=== PATIENT | female | born 1935 | race American Indian/Alaskan Native ===

== ENCOUNTER 2017-02-08 05:42 | Emergency (ER) | payer MEDICARE ==
[2017-02-08 05:57] VITALS: BMI 26.5
[2017-02-08 06:01] VITALS: TEMP 99
--- NOTE | 2017-02-08 06:26 | ED PDOC ---
Arrival/HPI - General Chief Complaint: Medical Clearance Time Seen by Provider: 02/08/17 06:02 Historian: Patient - History of Present Illness Narrative History of Present Illness (Text): 02/08/17 06:22 Mamta Sorto is a 81 year old female, with a history of hypercholesterolemia, hypertension, and PE, presents to the emergency department complaining of right sided neck muscle discomfort for past 2 days.No hx. of any trauma. Reports that symptoms are worsened with movement. Denies taking any medication for the pain. Denies fever, chills, headache, dizziness, abdominal pain, nausea, vomiting, diarrhea, urinary symptoms or any other complaints at this time. Time/Duration: < week (2 days ) Symptom Onset: Gradual Symptom Course: Worsening Severity Level: Mild Activities at Onset: Light Past Medical History - Provider Review Nursing Documentation Reviewed: Yes - Infectious Disease Hx of Infectious Diseases: None - Tetanus Immunization Tetanus Immunization: Unknown - Past Medical History Past Medical History: No Previous - Cardiac Hx Hypertension: Yes Hx Pacemaker: No Other/Comment: palpitations - Pulmonary Hx Pulmonary Embolism: Yes - Neurological Hx Paralysis: No Other/Comment: meningioma of the brain - HEENT Hx HEENT Disorder: No - Renal Hx Renal Disorder: No - Endocrine/Metabolic Hx Endocrine Disorders: No - Hematological/Oncological Hx Blood Transfusions: Yes (YRS AGO AFTER DELIVERY) - Musculoskeletal/Rheumatological Hx Musculoskeletal Disorders: Yes Hx Arthritis: Yes Other/Comment: ostopenia - Gastrointestinal Hx Gastrointestinal Disorders: Yes (liver meningioma) - Genitourinary/Gynecological Other/Comment: mammography 05/02/12 - Psychiatric Hx Emotional Abuse: No Hx Physical Abuse: No Hx Substance Use: No - Past Surgical History Past Surgical History: No Previous - Anesthesia Hx Anesthesia: Yes Hx Anesthesia Reactions: No Hx Malignant Hyperthermia: No - Suicidal Assessment Feels Threatened In Home Enviroment: No Family/Social History - Physician Review Nursing Documentation Reviewed: Yes Family/Social History: No Known Family HX Smoking Status: Never Smoked Hx Alcohol Use: No Hx Substance Use: No Hx Substance Use Treatment: No Allergies/Home Meds Allergies/Adverse Reactions: Allergies No Known Allergies Allergy (Verified 08/15/16 04:46) Home Medications: Home Meds Medication Instructions Recorded Confirmed Atorvastatin [Lipitor] 10 mg PO DIN 09/30/14 08/15/16 Valsartan [Diovan] 80 mg PO DAILY 09/30/14 08/15/16 Apixaban [Eliquis] 2.5 mg PO BID 07/24/15 08/15/16 Ergocalciferol [Vitamin D] 50,000 iu PO SUN 08/06/15 08/15/16 Ranitidine HCl [Acid Bail Bondsman] 150 mg PO BID 08/15/16 08/15/16 Review of Systems - Physician Review All systems were reviewed & negative as marked: Yes - Review of Systems Constitutional: Normal. absent: Fatigue, Fevers Respiratory: Normal. absent: SOB, Cough Cardiovascular: Normal. absent: Chest Pain Gastrointestinal: Normal. absent: Abdominal Pain, Diarrhea, Nausea, Vomiting Musculoskeletal: Neck Pain (right sided neck muscle tenderness) Skin: Normal. absent: Rash Neurological: Normal. absent: Headache, Dizziness Psychiatric: Normal Physical Exam Vital Signs Reviewed: Yes Vital Signs Temp Pulse Resp BP Pulse Ox 02/08/17 07:21 82 16 128/70 99 02/08/17 06:00 99 F 80 18 158/74 H 98 Temperature: Afebrile Blood Pressure: Normal Pulse: Regular Respiratory Rate: Normal Appearance: Positive for: Well-Appearing, Non-Toxic, Comfortable Pain Distress: None Mental Status: Positive for: Alert and Oriented X 3 - Systems Exam Head: Present: Atraumatic, Normocephalic Pupils: Present: PERRL Extroacular Muscles: Present: EOMI Conjunctiva: Present: Normal Ears: Present: NORMAL TM Pharnyx: Present: Normal Neck: Present: Other (right sided sternocleidomastoid tenderness). No: MIDLINE TENDERNESS, Paraspinal Tenderness Respiratory/Chest: Present: Clear to Auscultation, Good Air Exchange. No: Respiratory Distress, Accessory Muscle Use Cardiovascular: Present: Regular Rate and Rhythm, Normal S1, S2. No: Murmurs Abdomen: Present: Normal Bowel Sounds. No: Tenderness, Distention, Peritoneal Signs Upper Extremity: Present: Normal Inspection. No: Cyanosis, Edema Lower Extremity: Present: Normal Inspection. No: Edema Neurological: Present: GCS=15, CN II-XII Intact, Speech Normal Skin: Present: Warm, Dry, Normal Color. No: Rashes Psychiatric: Present: Alert, Oriented x 3, Normal Insight, Normal Concentration Medical Decision Making ED Course and Treatment: 02/08/17 06:26 Impression: A 81 year old female who presents to the emergency department complaining of right sided neck muscle discomfort. Plan: -- Reassess and disposition Progress Notes: - Medication Orders Current Medication Orders: Discontinued Medications Tramadol HCl (Ultram) 50 mg PO STAT STA Stop: 02/08/17 06:32 Last Admin: 02/08/17 06:49 Dose: 50 MG - Scribe Statement The provider has reviewed the documentation as recorded by the Quirino Rodriguez Provider Attestation: All medical record entries made by the Quirino were at my direction and personally dictated by me. I have reviewed the chart and agree that the record accurately reflects my personal performance of the history, physical exam, medical decision making, and the department course for this patient. I have also personally directed, reviewed, and agree with the discharge instructions and disposition. Disposition/Present on Arrival - Present on Arrival Any Indicators Present on Arrival: No History of DVT/PE: Yes History of Uncontrolled Diabetes: No Urinary Catheter: No History of Decub. Ulcer: No History Surgical Site Infection Following: None - Disposition Have Diagnosis and Disposition been Completed?: Yes Diagnosis: Neck muscle strain Disposition: HOME/ ROUTINE Disposition Time: 06:36 Patient Plan: Discharge Condition: GOOD Discharge Instructions (ExitCare): Muscle Strain (ED), Cervical Strain (DC) Additional Instructions: Apply warm compresses to the affected area/Take meds as prescribed/follow up with your doctor this week Prescriptions: Tramadol HCl [Ultram] 50 mg PO Q6 PRN #16 tab PRN Reason: Pain, Moderate (4-7)
[2017-02-08 07:23] VITALS: BP 128/70; PULSE 82; RESP 16; O2SAT 99
== END 2017-02-08 07:21 | disposition home or self-care (01) ==
LOC: ED 05:42
DX: S16.1XXA Strain of muscle, fascia and tendon at neck level, initial encounter (principal); X58.XXXA Exposure to other specified factors, initial encounter; Y92.9 Unspecified place or not applicable

== ENCOUNTER 2017-07-26 15:08 | Observation (INO) | payer MEDICARE, OTHER ==
[2017-07-26 15:24] VITALS: BMI 24.4
--- NOTE | 2017-07-26 15:49 | ED PDOC ---
Arrival/HPI - General Chief Complaint: Chest Pain Time Seen by Provider: 07/26/17 15:26 Historian: Patient, Family (Daughter) - History of Present Illness Time/Duration: Other (3 days) Symptom Onset: Gradual Symptom Course: Unchanged Quality: Aching Severity Level: Mild Activities at Onset: Rest Associated Symptoms (Text): 07/26/17 15:47 Patient complains of a three-day history of intermittent left-sided chest pain along with nausea. She is currently pain-free. She reports she just does not feel right. No dyspnea. No abdominal pain vomiting or diarrhea. No diaphoresis. No dizziness or lightheadedness. No injury or trauma. No fever. Past Medical History - Infectious Disease Hx of Infectious Diseases: None - Tetanus Immunization Tetanus Immunization: Unknown - Past Medical History Past Medical History: No Previous - Cardiac Hx Hypertension: Yes Hx Pacemaker: No Other/Comment: palpitations - Pulmonary Hx Pulmonary Embolism: Yes - Neurological Hx Paralysis: No Other/Comment: meningioma of the brain - HEENT Hx HEENT Disorder: No - Renal Hx Renal Disorder: No - Endocrine/Metabolic Hx Endocrine Disorders: No - Hematological/Oncological Hx Blood Transfusions: Yes (YRS AGO AFTER DELIVERY) - Musculoskeletal/Rheumatological Hx Musculoskeletal Disorders: Yes Hx Arthritis: Yes Other/Comment: ostopenia - Gastrointestinal Hx Gastrointestinal Disorders: Yes (liver meningioma) - Genitourinary/Gynecological Other/Comment: mammography 05/02/12 - Psychiatric Hx Emotional Abuse: No Hx Physical Abuse: No Hx Substance Use: No - Past Surgical History Past Surgical History: No Previous - Anesthesia Hx Anesthesia: Yes Hx Anesthesia Reactions: No Hx Malignant Hyperthermia: No - Suicidal Assessment Feels Threatened In Home Enviroment: No Family/Social History - Physician Review Nursing Documentation Reviewed: Yes Family/Social History: Unknown Family HX Smoking Status: Never Smoked Hx Alcohol Use: No Hx Substance Use: No Hx Substance Use Treatment: No Allergies/Home Meds Allergies/Adverse Reactions: Allergies No Known Allergies Allergy (Verified 08/15/16 04:46) Home Medications: Home Meds Medication Instructions Recorded Confirmed Atorvastatin [Lipitor] 10 mg PO DIN 09/30/14 08/15/16 Valsartan [Diovan] 80 mg PO DAILY 09/30/14 08/15/16 Apixaban [Eliquis] 2.5 mg PO BID 07/24/15 08/15/16 Ergocalciferol [Vitamin D] 50,000 iu PO SUN 08/06/15 08/15/16 Ranitidine HCl [Acid Horseback Riding Instructor] 150 mg PO BID 08/15/16 08/15/16 Review of Systems - Physician Review All systems were reviewed & negative as marked: Yes - Review of Systems Constitutional: Fatigue. absent: Fevers Respiratory: absent: SOB, Wheezing Cardiovascular: Chest Pain. absent: Palpitations, Orthopnea, Syncope Gastrointestinal: Nausea. absent: Abdominal Pain, Constipation, Diarrhea, Vomiting Genitourinary Female: absent: Dysuria, Frequency Neurological: absent: Headache, Dizziness, Focal Weakness Physical Exam Vital Signs Temp Pulse Resp BP Pulse Ox 07/26/17 15:45 98.0 F 84 18 125/71 98 07/26/17 15:15 99.4 F 85 18 137/77 100 Temperature: Afebrile Blood Pressure: Normal Pulse: Regular Respiratory Rate: Normal Appearance: Positive for: Well-Appearing, Non-Toxic, Comfortable Pain Distress: None Mental Status: Positive for: Alert and Oriented X 3 - Systems Exam Head: Present: Atraumatic, Normocephalic Pupils: Present: PERRL Extroacular Muscles: Present: EOMI Conjunctiva: Present: Normal Mouth: Present: Moist Mucous Membranes Pharnyx: No: ERYTHEMA, EXUDATE, TONSILS ENLARGED Neck: Present: Normal Range of Motion Respiratory/Chest: Present: Clear to Auscultation, Good Air Exchange, Decreased Breath Sounds. No: Respiratory Distress, Accessory Muscle Use, Tender to Palpation Cardiovascular: Present: Regular Rate and Rhythm, Normal S1, S2. No: Murmurs Abdomen: Present: Normal Bowel Sounds. No: Tenderness, Distention, Peritoneal Signs, Rebound, Guarding Upper Extremity: Present: Normal Inspection. No: Cyanosis, Edema Lower Extremity: Present: Normal Inspection. No: Edema Neurological: Present: GCS=15, CN II-XII Intact, Speech Normal, Motor Func Grossly Intact Skin: Present: Warm, Dry, Normal Color. No: Rashes Psychiatric: Present: Alert, Oriented x 3, Normal Insight, Normal Concentration Medical Decision Making ED Course and Treatment: 07/26/17 17:50 EKG shows normal sinus rhythm rate approximately [address] or T-wave changes 07/26/17 17:51 Discussed in detail with , who will place on telemetry observation. Discussed with the hospitalist medical director. 07/26/17 18:27 Nausea improved after Zofran - Lab Interpretations Lab Results: 07/26/17 16:05 07/26/17 16:05 Lab Results 07/26/17 16:05: Sodium 139, Potassium 4.5, Chloride 103, Carbon Dioxide 26, Anion Gap 15, BUN 14, Creatinine 0.9, Est GFR ( Amer) > 60, Est GFR (Non- Af Amer) > 60, Random Glucose 89, Calcium 10.1, Total Bilirubin 0.5, AST 32, ALT 25, Alkaline Phosphatase 81, Lactate Dehydrogenase 437, Total Creatine Kinase 121, Troponin I < 0.01, Total Protein 7.4, Albumin 4.2, Globulin 3.1, Albumin/Globulin Ratio 1.4, Amylase 110, Lipase 100 07/26/17 16:05: PT 12.2 H, INR 1.13 H, APTT 34.3 H 07/26/17 16:05: WBC 6.5, RBC 3.84, Hgb 10.5 L, Hct 31.8 L, MCV 82.8, MCH 27.3, MCHC 33.0, RDW 15.4 H, Plt Count 209, MPV 10.3, Gran % 64.5, Lymph % (Auto) 26.7 , Sully % (Auto) 7.1 H, Eos % (Auto) 1.5, Baso % (Auto) 0.2, Gran # 4.19, Lymph # 1.7, Sully # 0.5, Eos # 0.1, Baso # 0.01 - RAD Interpretation Radiology Orders: 07/26/17 15:41 CHEST PORTABLE [RAD] Stat Chest 1 view shows no infiltrate effusion or cardiomegaly Chromium Plater: ED Physician - Medication Orders Current Medication Orders: Discontinued Medications Aspirin (Aspirin Chewable) 324 mg PO ONCE ONE Stop: 07/26/17 15:43 Last Admin: 07/26/17 15:53 Dose: 324 mg Ondansetron HCl (Zofran Inj) 4 mg IVP ONCE ONE Stop: 07/26/17 15:43 Last Admin: 07/26/17 15:53 Dose: 4 mg IVP Administration Document 07/26/17 15:53 [place] (Rec: 07/26/17 15:53 [facility] Charges for Administration # of IVP Administrations 1 Disposition/Present on Arrival - Present on Arrival Any Indicators Present on Arrival: No History of DVT/PE: Yes History of Uncontrolled Diabetes: No Urinary Catheter: No History of Decub. Ulcer: No History Surgical Site Infection Following: None - Disposition Have Diagnosis and Disposition been Completed?: Yes Diagnosis: Chest pain, Nausea, Anemia Disposition: HOSPITALIZED Disposition Time: 17:52 Patient Plan: Observation, Telemetry Patient Problems: Current Active Problems Problem Status Onset Anemia Acute Chest pain Acute Nausea Acute Condition: GOOD
--- NOTE | 2017-07-26 16:01 | RAD ---
HISTORY: Chest pain COMPARISON: 07/24/2015. FINDINGS: LUNGS: The lungs are well inflated and clear. PLEURA: No significant pleural effusion identified, no pneumothorax apparent. CARDIOVASCULAR: Normal. OSSEOUS STRUCTURES: No significant abnormalities. VISUALIZED UPPER ABDOMEN: Normal. OTHER FINDINGS: None. IMPRESSION: No active pulmonary disease.
[2017-07-26 16:22] LABS: BASO # 0.01 K/mm3 (0.0-2.0); BASO % 0.2 % (0.0-3.0); EOS # 0.1 (0.0-0.7); EOS % 1.5 % (1.5-5.0); GRAN # 4.19 (1.4-6.5); GRAN % 64.5 % (50.0-68.0); HEMATOCRIT 31.8 % (36.0-48.0); LYMPH # 1.7 (1.2-3.4); LYMPH % 26.7 % (22.0-35.0); MEAN CELL VOLUME 82.8 fl (80.0-105.0); MEAN CORPUSCULAR HEMOGLOBIN 27.3 pg (25.0-35.0); MEAN PLATELET VOLUME 10.3 fl (7.0-11.0); MONO # 0.5 (0.1-0.6); MONO % 7.1 % (1.0-6.0); RED CELL DISTRIBUTION WIDTH 15.4 % (11.5-14.5); WHITE BLOOD COUNT 6.5 10^3/ul (4.5-11.0)
[2017-07-26 16:33] LABS: ALB/GLOB RATIO 1.4 (1.1-1.8); ALKALINE PHOSPHATASE 81 U/L (38-126); ALT/SGPT 25 U/L (7-56); AMYLASE 110 U/L (35-125); AST/SGOT 32 U/L (14-36); BILIRUBIN,TOTAL 0.5 mg/dL (0.2-1.3); BLOOD UREA NITROGEN 14 mg/dL (7-21); CALCIUM 10.1 mg/dL (8.4-10.5); CARBON DIOXIDE 26 mmol/L (21-33); CHLORIDE 103 mmol/L (98-107); GFR AFRICAN-AMERICAN > 60; GLUCOSE,RANDOM 89 mg/dL (70-110); INR 1.13 (0.93-1.08); LIPASE 100 U/L (23-300); PARTIAL THROMBOPLASTIN TIME 34.3 Seconds (23.7-30.8); POTASSIUM 4.5 mmol/L (3.6-5.0); SODIUM 139 mmol/L (132-148); TOTAL PROTEIN 7.4 g/dL (5.8-8.3)
[2017-07-26 16:50] LABS: TROPONIN I < 0.01 ng/mL
--- NOTE | 2017-07-26 20:44 | CP.PCM.HP ---
History of Present Illness - History of Present Illness History of Present Illness: CC: Abdominal pain HPI: Pt is an 81 yo female with PMHx of HTN, HLD, PE, GERD, and meningioma of the brain presents with 3 day history of abdominal discomfort of insidious onset. Pt denies pain or feeling bloated, but states that her abdomen "just didn 't feel right". Pt states that the discomfort is diffuse but greatest in the epigastric region. Pt stated that she had some left sided chest discomfort and minor nausea, but denied pain, pressure, or palpatations. Today, patient contacted her PMD who instructed her to be evaluated by the ED. At the time of examination, pt denied CP, SOB, nausea, vomiting, diarrhea, dysuria, hematuria, dizziness, fatigue, diarrhea, or constipation. PMHx: HTN, HLD, PE, GERD, degenerative joint disease, osteopenia meningioma of the brain, and borderline amnesia Surg: C-sections x3 FHx: Non-contributory All: NKDA SH: Denied EtOH, tobacco, or illicit drug use Medications: Atorvastatin 10 mg daily Valsartan 80 mg daily Donepezil 5 mg daily Ranitidine 150 mg BID Eliquis 2.5 mg BID PMD: Dr. Villalobos Present on Admission - Present on Admission Any Indicators Present on Admission: No Review of Systems - Review of Systems All systems: reviewed and no additional remarkable complaints except (other than what is stated in HPI.) Past Patient History - Infectious Disease Hx of Infectious Diseases: None - Tetanus Immunizations Tetanus Immunization: Unknown - Past Social History Smoking Status: Never Smoked - CARDIAC Hx Hypertension: Yes Hx Pacemaker: No Other/Comment: palpitations - PULMONARY Hx Pulmonary Embolism: Yes - NEUROLOGICAL Hx Paralysis: No Other/Comment: meningioma of the brain - HEENT Hx HEENT Problems: No - RENAL Hx Chronic Kidney Disease: No - ENDOCRINE/METABOLIC Hx Endocrine Disorders: No - HEMATOLOGICAL/ONCOLOGICAL Hx Blood Transfusions: Yes (YRS AGO AFTER DELIVERY) - MUSCULOSKELETAL/RHEUMATOLOGICAL Hx Musculoskeletal Disorders: Yes Hx Arthritis: Yes Other/Comment: ostopenia - GASTROINTESTINAL Hx Gastrointestinal Disorders: Yes (liver meningioma) - GENITOURINARY/GYNECOLOGICAL Other/Comment: mammography 05/02/12 - PSYCHIATRIC Hx Emotional Abuse: No Hx Physical Abuse: No Hx Substance Use: No - SURGICAL HISTORY Hx Surgeries: Yes - ANESTHESIA Hx Anesthesia: Yes Hx Anesthesia Reactions: No Hx Malignant Hyperthermia: No Meds Allergies/Adverse Reactions: Allergies Allergy/AdvReac Type Severity Reaction Status Date / Time No Known Allergies Allergy Verified 08/15/16 04:46 Physical Exam - Constitutional Appears: No Acute Distress - Head Exam Head Exam: ATRAUMATIC, NORMAL INSPECTION, NORMOCEPHALIC - Eye Exam Eye Exam: EOMI, PERRL Pupil Exam: PERRL - ENT Exam ENT Exam: Mucous Membranes Moist - Neck Exam Neck exam: Positive for: Full Rom - Respiratory Exam Respiratory Exam: Clear to Auscultation Bilateral. absent: Rales, Rhonchi, Wheezes - Cardiovascular Exam Cardiovascular Exam: RRR. absent: Diastolic murmur, Gallop, Rubs, Systolic Murmur - GI/Abdominal Exam GI & Abdominal Exam: Soft. absent: Distended, Guarding, Organomegaly, Rebound, Rigid, Tenderness - Extremities Exam Extremities exam: Positive for: normal inspection - Back Exam Back exam: NORMAL INSPECTION - Neurological Exam Neurological exam: Alert, CN II-XII Intact, Oriented x3 - Psychiatric Exam Psychiatric exam: Normal Affect, Normal Mood - Skin Skin Exam: Dry, Intact, Normal Color, Warm Results - Vital Signs Recent Vital Signs: Last Vital Signs Temp 98.0 F 07/26/17 15:45 Pulse 74 07/26/17 18:30 Resp 18 07/26/17 18:30 BP 128/70 07/26/17 18:30 Pulse Ox 99 07/26/17 18:30 - Labs Result Diagrams: 07/26/17 16:05 07/26/17 16:05 Assessment & Plan - Assessment and Plan (Free Text) Assessment: 81 yo F with PMHx HTN, HLD, PE, GERD, and meningioma of the brain admitted for evaluation and treatment for chest and abdominal discomfort. Plan: 1. Questionable chest pain - Admit to telemetry for observation - Troponin x1 negative - F/u repeat cardiac enzymes - EKG shows NSR 2. Questionable abdominal pain - F/u Abdominal US 3. HTN - Cont Valsartan - Heart healthy diet 4. HLD - Cont Atorvastatin 5. H/O PE - Cont Eliquis 6. H/O amnesia - Cont donepezil 7. H/O of GERD - Cont ranitidine GI/DVT PPx - GI covered by ranitidine - DVT covered by eliquis Pt discussed in detail with attending. Syed Herrera PGY1
--- NOTE | 2017-07-26 21:24 | US ---
EXAM: US Abdomen Complete CLINICAL HISTORY: 81 years old, female; Pain; Abdominal pain TECHNIQUE: Real-time ultrasound of the abdomen (complete) with image documentation. COMPARISON: No relevant prior studies available. FINDINGS: Liver: Fatty infiltration. 0.6 x 0.5 cm hyperechoic lesion within LEFT lobe. No intrahepatic ductal dilatation. Gallbladder: No gallstones. No wall thickening. No pericholecystic fluid. No sonographic Benedict's sign. Common bile duct: No dilatation. No stones. Pancreas: Unremarkable as visualized. Kidneys: Normal echogenicity. No hydronephrosis. Spleen: No splenomegaly. Aorta: Unremarkable. No aneurysm. Inferior vena cava: Unremarkable. Free fluid: No significant free fluid. IMPRESSION: 1. Hepatic steatosis. 2. Liver lesion, nonspecific but possibly hemangioma. Consider MRI.
[2017-07-27 03:08] LABS: TROPONIN I < 0.01 ng/mL
[2017-07-27 04:06] VITALS: TEMP 97.6
[2017-07-27 06:38] VITALS: O2SAT 98
[2017-07-27 07:07] LABS: HEMATOCRIT 34.9 % (36.0-48.0); MEAN CELL VOLUME 81.9 fl (80.0-105.0); MEAN CORPUSCULAR HEMOGLOBIN 26.8 pg (25.0-35.0); MEAN CORPUSCULAR HGB CONC 32.7 g/dl (31.0-37.0); MEAN PLATELET VOLUME 10.4 fl (7.0-11.0); RED CELL DISTRIBUTION WIDTH 15.3 % (11.5-14.5); WHITE BLOOD COUNT 5.7 10^3/ul (4.5-11.0)
[2017-07-27 07:30] LABS: ALB/GLOB RATIO 1.4 (1.1-1.8); ALKALINE PHOSPHATASE 79 U/L (38-126); ALT/SGPT 21 U/L (7-56); AST/SGOT 34 U/L (14-36); BILIRUBIN,TOTAL 0.8 mg/dL (0.2-1.3); BLOOD UREA NITROGEN 10 mg/dL (7-21); CALCIUM 10.1 mg/dL (8.4-10.5); CARBON DIOXIDE 29 mmol/L (21-33); CHLORIDE 103 mmol/L (98-107); GFR AFRICAN-AMERICAN > 60; GLUCOSE,RANDOM 84 mg/dL (70-110); SODIUM 141 mmol/L (132-148); TOTAL PROTEIN 7.2 g/dL (5.8-8.3)
[2017-07-27] MEDS ORDERED: Non Formulary Medication (Valsartan [Diovan] 80 MG) PO SCH (10:00)
--- NOTE | 2017-07-27 11:43 | CARD ---
APPROVED REPORT EKG Measurement Heart [id number] <Conclusion> Poor data quality, interpretation may be adversely affected Normal sinus rhythm Normal ECG
[2017-07-27] MEDS ORDERED: Magnesium Hydroxide Susp 30 ml UD PO ONE (14:33)
--- NOTE | 2017-07-27 14:36 | CP.PCM.PN ---
Subjective - Date & Time of Evaluation Date of Evaluation: 07/27/17 Time of Evaluation: 06:15 - Subjective Subjective: Pt is an 81 yo female with PMHx of HTN, HLD, PE, GERD, and meningioma of the brain presents with 3 day history of abdominal discomfort of insidious onset. Pt denies pain or feeling bloated, but states that her abdomen "just didn't feel right". Pt states that the discomfort is diffuse but greatest in the epigastric region. Pt stated that she had some left sided chest discomfort and minor nausea, but denied pain, pressure, or palpatations. Today, patient contacted her PMD who instructed her to be evaluated by the ED. At the time of examination, pt denied CP, SOB, nausea, vomiting, diarrhea, dysuria, hematuria, dizziness, fatigue, diarrhea, or constipation. Patient was seen and evaluated in ICU for telemetry hold. Patient stated she is feeling fine today, no complaints, and that her abdominal pain had subsided. She states she has been constipated. She states she sees Dr. Benites as an outpatient, and has a colonoscopy scheduled coming up soon. She denies any CP, SOB, N, V, C, diaphoresis, numbness, tingling or any other complaint. Objective - Vital Signs/Intake and Output Vital Signs (last 24 hours): Temp Pulse Resp BP Pulse Ox 97.6 F 73 24 141/68 98 07/27/17 03:05 07/27/17 10:03 07/27/17 08:20 07/27/17 10:03 07/27/17 08:20 - Medications Medications: Current Medications Apixaban (Eliquis) 2.5 mg PO BID [facility] PRN Reason: Protocol Last Admin: 07/27/17 10:03 Dose: 2.5 mg Atorvastatin Calcium (Lipitor) 10 mg PO DIN DAVEY Donepezil HCl (Aricept) 5 mg PO HS [facility] Last Admin: 07/26/17 22:42 Dose: 5 mg Ergocalciferol (Drisdol 50,000 Intl Units Cap) 1 cap PO SUN [facility] Famotidine (Pepcid) 20 mg PO BID [facility] Last Admin: 07/27/17 10:03 Dose: 20 mg Losartan Potassium (Cozaar) 50 mg PO DAILY [facility] Last Admin: 07/27/17 10:03 Dose: 50 mg Magnesium Hydroxide (Milk Of Magnesia) 30 ml PO ONCE ONE Stop: 07/27/17 14:34 Pneumococcal Polyvalent Vaccine (Pneumovax 23 Vaccine) 0.5 ml IM .ONCE ONE Stop: 07/29/17 10:01 - Labs Labs: 07/27/17 06:00 07/27/17 06:00 PT 12.2 Seconds (9.9-11.8) H 07/26/17 16:05 INR 1.13 (0.93-1.08) H 07/26/17 16:05 APTT 34.3 Seconds (23.7-30.8) H 07/26/17 16:05 - Constitutional Appears: No Acute Distress - Head Exam Head Exam: ATRAUMATIC, NORMAL INSPECTION, NORMOCEPHALIC - Eye Exam Eye Exam: Normal appearance - ENT Exam ENT Exam: Mucous Membranes Moist, Normal Exam - Neck Exam Neck Exam: Full ROM. absent: Lymphadenopathy - Respiratory Exam Respiratory Exam: Clear to Ausculation Bilateral, NORMAL BREATHING PATTERN - Cardiovascular Exam Cardiovascular Exam: REGULAR RHYTHM, +S1, +S2 - GI/Abdominal Exam GI & Abdominal Exam: Normal Bowel Sounds. absent: Tenderness Additional comments: denies any tenderness on palpation of 4 quadrants - Extremities Exam Extremities Exam: Full ROM - Back Exam Back Exam: absent: CVA tenderness (L), CVA tenderness (R) - Neurological Exam Neurological Exam: Alert, Awake, Normal Gait, Oriented x3 - Psychiatric Exam Psychiatric exam: Normal Mood Assessment and Plan - Assessment and Plan (Free Text) Assessment: 81 yo F with PMHx HTN, HLD, PE, GERD, and meningioma of the brain admitted for evaluation and treatment for chest and abdominal discomfort. Plan: 1. chest pain-rule out ACS - Admit to telemetry for observation - Troponin x2 negative, waiting for 3rd set - F/u repeat cardiac enzymes - EKG shows NSR 2. Questionable abdominal pain -Abdominal ultrasound showed hepatic steatosis, and possible liver hemangioma per radiology. 3. Constipation -milk of magnesia given 3. HTN - Cont Valsartan - Heart healthy diet 4. HLD - Cont Atorvastatin 5. H/O PE - Cont Eliquis 6. H/O amnesia - Cont donepezil 7. H/O of GERD - Cont ranitidine GI/DVT PPx - GI covered by ranitidine - DVT covered by eliquis Pt discussed in detail with attending.
[2017-07-27 14:37] LABS: TROPONIN I < 0.01 ng/mL
[2017-07-27] MEDS ORDERED: POLYETHYLENE GLYCOL 3350 17 GM/Dose PACKET PO ONE (15:08)
--- NOTE | 2017-07-27 15:18 | CP.PCM.DIS ---
Provider - Provider Date of Admission: 07/26/17 17:50 Attending physician: Sandoval Villalobos MD Primary care physician: Sandoval Villalobos MD Time Spent in preparation of Discharge (in minutes): 50 Hospital Course - Lab Results Lab Results: Most Recent Lab Values WBC 5.7 10^3/ul (4.5-11.0) 07/27/17 06:00 RBC 4.26 10^6/uL (3.5-6.1) 07/27/17 06:00 Hgb 11.4 g/dL (12.0-16.0) L 07/27/17 06:00 Hct 34.9 % (36.0-48.0) L 07/27/17 06:00 MCV 81.9 fl (80.0-105.0) 07/27/17 06:00 MCH 26.8 pg (25.0-35.0) 07/27/17 06:00 MCHC 32.7 g/dl (31.0-37.0) 07/27/17 06:00 RDW 15.3 % (11.5-14.5) H 07/27/17 06:00 Plt Count 203 10^3/uL (120.0-450.0) 07/27/17 06:00 MPV 10.4 fl (7.0-11.0) 07/27/17 06:00 Gran % 64.5 % (50.0-68.0) 07/26/17 16:05 Lymph % (Auto) 26.7 % (22.0-35.0) 07/26/17 16:05 Daniels % (Auto) 7.1 % (1.0-6.0) H 07/26/17 16:05 Eos % (Auto) 1.5 % (1.5-5.0) 07/26/17 16:05 Baso % (Auto) 0.2 % (0.0-3.0) 07/26/17 16:05 Gran # 4.19 (1.4-6.5) 07/26/17 16:05 Lymph # 1.7 (1.2-3.4) 07/26/17 16:05 Daniels # 0.5 (0.1-0.6) 07/26/17 16:05 Eos # 0.1 (0.0-0.7) 07/26/17 16:05 Baso # 0.01 K/mm3 (0.0-2.0) 07/26/17 16:05 PT 12.2 Seconds (9.9-11.8) H 07/26/17 16:05 INR 1.13 (0.93-1.08) H 07/26/17 16:05 APTT 34.3 Seconds (23.7-30.8) H 07/26/17 16:05 Sodium 141 mmol/L (132-148) 07/27/17 06:00 Potassium 4.0 mmol/L (3.6-5.0) 07/27/17 06:00 Chloride 103 mmol/L (98-107) 07/27/17 06:00 Carbon Dioxide 29 mmol/L (21-33) 07/27/17 06:00 Anion Gap 13 (10-20) 07/27/17 06:00 BUN 10 mg/dL (7-21) 07/27/17 06:00 Creatinine 0.8 mg/dL (0.5-1.4) 07/27/17 06:00 Est GFR ( Amer) > 60 07/27/17 06:00 Est GFR (Non-Af Amer) > 60 07/27/17 06:00 Random Glucose 84 mg/dL (70-110) 07/27/17 06:00 Calcium 10.1 mg/dL (8.4-10.5) 07/27/17 06:00 Total Bilirubin 0.8 mg/dL (0.2-1.3) 07/27/17 06:00 AST 34 U/L (14-36) 07/27/17 06:00 ALT 21 U/L (7-56) 07/27/17 06:00 Alkaline Phosphatase 79 U/L (38-126) 07/27/17 06:00 Lactate Dehydrogenase 420 U/L (333-699) 07/27/17 14:05 Total Creatine Kinase 525 U/L (35-230) H 07/27/17 14:05 CK-MB (CK-2) 4.2 ng/mL (0.0-3.6) H 07/27/17 14:05 CK-MB (CK-2) % Cancelled 07/27/17 02:10 Troponin I < 0.01 ng/mL 07/27/17 14:05 Total Protein 7.2 g/dL (5.8-8.3) 07/27/17 06:00 Albumin 4.1 g/dL (3.0-4.8) 07/27/17 06:00 Globulin 3.0 gm/dL 07/27/17 06:00 Albumin/Globulin Ratio 1.4 (1.1-1.8) 07/27/17 06:00 Amylase 110 U/L (35-125) 07/26/17 16:05 Lipase 100 U/L (23-300) 07/26/17 16:05 - Hospital Course Hospital Course: Patient was admitted and evaluated in telemetry hold, due to her complaints of chest discomfort. She was also evaluated for her stomach discomfort. For her chest discomfort an EKG was ordered and obtained which was normal and did not show any acute events. Serial cardiac enzymes were also ordered and all came back negative. For her abdominal discomfort and US was performed which showed some hepatic steatosis and a possible hemangioma in her liver. Looking at her previous scans it seems she has had the same hemangioma. While she was here she was also continued on her home medications. Upon discharge, she was advised to come back to the ED if she experiences any chest pain or discomfort. In addition , she was told to follow up with Dr. Villalobos in 2 weeks, make an outpatient appointment with Dr. Benites and also see Dr. Jurado for her heart as it has been a while since she has seen a supervisor [employer]. Patient understood the discharge plan along with her family members who were present. Discharge Exam - Head Exam Head Exam: ATRAUMATIC, NORMAL INSPECTION, NORMOCEPHALIC - Eye Exam Eye Exam: EOMI, Normal appearance - ENT Exam ENT Exam: Mucous Membranes Moist - Neck Exam Neck exam: Normal Inspection - Respiratory Exam Respiratory Exam: NORMAL BREATHING PATTERN, UNREMARKABLE - Cardiovascular Exam Cardiovascular Exam: REGULAR RHYTHM, +S1, +S2 - GI/Abdominal Exam GI & Abdominal Exam: Normal Bowel Sounds, Unremarkable Additional comments: Negative Mcpherson sign, no tenderness to palpation of all 4 quadrants or epigastric region - Extremities Exam Extremities exam: full ROM, normal inspection - Back Exam Back exam: NORMAL INSPECTION Additional comments: denies any tenderness - Neurological Exam Neurological exam: Alert, CN II-XII Intact, Normal Gait, Oriented x3 - Psychiatric Exam Psychiatric exam: Normal Mood Discharge Plan - Follow Up Plan Condition: GOOD Disposition: HOME/ ROUTINE Additional Instructions: 1. Pt is to fu with PMD with Dr. Villalobos within 2 wks. 2. Pt is to fu with GI Dr. Benites within 1 week - pt has already scheduled colonoscopy at this time 3. Pt is to fu with Cardio, Dr. Jurado within 1 week 4. Pt is educated and encouraged to return [place] [facility] if symptoms change or worsen Referrals: Sandoval Villalobos MD [Primary Care Provider] - Tanmay Benites MD [Medical Doctor] - Kavon Jurado MD [Staff Provider] -
[2017-07-27 15:53] VITALS: BP 151/92; PULSE 77; RESP 19
[2017-07-29] MEDS ORDERED: Pneumococcal 23-Valent Vaccine IM ONE (10:00)
[2017-07-31] MEDS ORDERED: Ergocalciferol 50,000 Intl Units Cap PO SCH (10:00)
[2017-07-31] MEDS ORDERED: ERGOCALCIFEROL PO SCH (10:00)
== END 2017-07-27 18:04 | disposition home or self-care (01) ==
LOC: ED 15:08 → ERH 17:50 → CCU 07-27 02:28
PROVIDERS: ADMIT Internal Medicine; ATTEND Internal Medicine
DX: R07.89 Other chest pain (principal); K76.0 Fatty (change of) liver, not elsewhere classified; D18.09 Hemangioma of other sites; K21.9 Gastro-esophageal reflux disease without esophagitis; I10 Essential (primary) hypertension; E78.5 Hyperlipidemia, unspecified; D32.0 Benign neoplasm of cerebral meninges; M19.90 Unspecified osteoarthritis, unspecified site; Z86.711 Personal history of pulmonary embolism; Z79.01 Long term (current) use of anticoagulants
CPT/HCPCS: 71010; 76700; 80053; 82150; 82550; 82553; 83615; 83690; 84484; 85025; 85027; 85610; 85730; 87081; 93005; 96374; 99284; G0378; J2405

== ENCOUNTER 2018-10-02 06:59 | Day surgery (SDC) | payer MEDICARE ==
[2018-10-02] MEDS ORDERED: Propofol 10 mg/ml Inj (20 ML) ONE (07:57)
[2018-10-02 08:15] VITALS: RESP 16
[2018-10-02] MEDS ORDERED: Sodium Chloride 0.9% 1,000 ML IV SCH (09:00)
[2018-10-02 17:00] VITALS: BP 119/65; PULSE 86; TEMP 97.8; O2SAT 98
== END 2018-10-02 11:14 | disposition home or self-care (01) ==
LOC: ENDO 06:59
PROVIDERS: ATTEND Internal Medicine Gastroenterology
DX: D12.2 Benign neoplasm of ascending colon (principal); R63.4 Abnormal weight loss; K57.30 Diverticulosis of large intestine without perforation or abscess without bleeding; K64.8 Other hemorrhoids; Q43.8 Other specified congenital malformations of intestine; K44.9 Diaphragmatic hernia without obstruction or gangrene; K25.9 Gastric ulcer, unspecified as acute or chronic, without hemorrhage or perforation; K29.80 Duodenitis without bleeding; K31.9 Disease of stomach and duodenum, unspecified; D64.9 Anemia, unspecified; K21.9 Gastro-esophageal reflux disease without esophagitis; Z86.010 Personal history of colon polyps
CPT/HCPCS: 43239; 45380; 88305; 88342; J2001; J2704; J7030

== ENCOUNTER 2018-10-08 11:57 | Emergency (ER) | payer MEDICARE ==
[2018-10-08 12:01] VITALS: BMI 23.0
[2018-10-08 12:06] VITALS: PULSE 81; RESP 18; TEMP 99.1; O2SAT 100
[2018-10-08 12:12] VITALS: BP 105/60
[2018-10-08] MEDS ORDERED: Sodium Chloride 0.9% 500 ML IV STA (12:27)
--- NOTE | 2018-10-08 12:35 | ED PDOC ---
Arrival/HPI - General Chief Complaint: Dizziness/Lightheaded Time Seen by Provider: 10/08/18 12:00 Historian: Patient - History of Present Illness Narrative History of Present Illness (Text): 10/08/18 12:31 83 year old female, whose past medical history includes colonoscopy, hyperlipidemia, and PE, who presents to the Emergency department complaining of feeling funny this morning. Patient states she woke up, ate breakfast, and began experiencing a sick feeling. Patient states she felt like she was going to pass out. Patient denies any fevers, chills, chest pain, shortness of breath, abdominal pain, nausea, vomiting, diarrhea, back pain, neck pain, urinary symptoms, headache, or any other complaint. PMD: Dr. Villalobos Time/Duration: Prior to Arrival Symptom Onset: Gradual Symptom Course: Unchanged Activities at Onset: Light Context: Home Past Medical History - Provider Review Nursing Documentation Reviewed: Yes - Infectious Disease Hx of Infectious Diseases: None - Tetanus Immunization Tetanus Immunization: Unknown - Reproductive Menopause: Yes - Past Medical History Past Medical History: No Previous - Cardiac Hx Hypertension: Yes - Pulmonary Hx Pulmonary Embolism: Yes - Neurological Hx Paralysis: No - HEENT Hx HEENT Disorder: No - Renal Hx Renal Disorder: No - Endocrine/Metabolic Hx Endocrine Disorders: No - Hematological/Oncological Hx Blood Transfusions: Yes Hx Blood Transfusion Reaction: No - Musculoskeletal/Rheumatological Hx Musculoskeletal Disorders: Yes Hx Arthritis: Yes - Gastrointestinal Hx Gastrointestinal Disorders: Yes (liver meningioma) - Genitourinary/Gynecological Other/Comment: mammography 05/02/12 - Psychiatric Hx Substance Use: No - Past Surgical History Past Surgical History: No Previous - Anesthesia Hx Anesthesia Reactions: No Hx Malignant Hyperthermia: No - Suicidal Assessment Feels Threatened In Home Enviroment: No Family/Social History - Physician Review Nursing Documentation Reviewed: Yes Family/Social History: Unknown Family HX Smoking Status: Never Smoked Hx Alcohol Use: No Hx Substance Use: No Hx Substance Use Treatment: No Allergies/Home Meds Allergies/Adverse Reactions: Allergies No Known Allergies Allergy (Verified 08/15/16 04:46) Home Medications: Home Meds Medication Instructions Recorded Confirmed Atorvastatin [Lipitor] 10 mg PO DIN 09/30/14 10/02/18 Apixaban [Eliquis] 2.5 mg PO BID 07/24/15 10/02/18 Ranitidine HCl [Acid Sanitizer] 150 mg PO BID 08/15/16 10/02/18 Donepezil HCl [Aricept] 5 mg PO DAILY 07/26/17 10/02/18 Cholecalciferol (Vitamin D3) 1,000 unit PO DAILY 08/09/17 10/02/18 [Vitamin D3] Losartan Potassium 50 mg PO DAILY 09/29/18 10/02/18 Pantoprazole Sodium [Protonix] 20 mg PO DAILY 10/02/18 10/02/18 Review of Systems - Physician Review All systems were reviewed & negative as marked: Yes - Review of Systems Constitutional: Other (sick feeling) ENT: Normal Respiratory: Normal. absent: SOB, Cough Cardiovascular: Normal. absent: Chest Pain Gastrointestinal: Normal. absent: Abdominal Pain, Diarrhea, Nausea, Vomiting Genitourinary Female: Normal. absent: Dysuria, Frequency Musculoskeletal: Normal. absent: Back Pain, Neck Pain Skin: Normal. absent: Rash Neurological: Normal. absent: Headache Endocrine: Normal Hemo/Lymphatic: Normal Psychiatric: Normal Physical Exam Vital Signs Reviewed: Yes Vital Signs Temp Pulse Resp BP Pulse Ox 10/08/18 11:58 99.1 F 81 18 105/60 100 Temperature: Afebrile Blood Pressure: Normal Pulse: Regular Respiratory Rate: Normal Appearance: Positive for: Well-Appearing, Non-Toxic, Comfortable Pain Distress: None Mental Status: Positive for: Alert and Oriented X 3 - Systems Exam Head: Present: Atraumatic, Normocephalic Pupils: Present: PERRL Extroacular Muscles: Present: EOMI Conjunctiva: Present: Normal Mouth: Present: Moist Mucous Membranes Neck: Present: Normal Range of Motion Respiratory/Chest: Present: Clear to Auscultation, Good Air Exchange. No: Respiratory Distress, Accessory Muscle Use Cardiovascular: Present: Regular Rate and Rhythm, Normal S1, S2. No: Murmurs Abdomen: No: Tenderness, Distention, Peritoneal Signs Back: Present: Normal Inspection Upper Extremity: Present: Normal Inspection. No: Cyanosis, Edema Lower Extremity: Present: Normal Inspection. No: Edema Neurological: Present: GCS=15, CN II-XII Intact, Speech Normal Skin: Present: Warm, Dry, Normal Color. No: Rashes Psychiatric: Present: Alert, Oriented x 3, Normal Insight, Normal Concentration Medical Decision Making ED Course and Treatment: 10/08/18 12:38 Impression: 83 year old female presents to the Emergency department complaining of a sick feeling this morning. Differential Diagnosis included but are not limited to: near syncope Plan: -- EKG -- Cardiac ISO -- Labs -- Chest X-ray -- Sodium Chloride -- UA -- Reassess and disposition Progress Notes: 10/08/18 13:01 EKG reviewed, shows NSR at 69 bpm. Normal EKG. 10/08/18 14:46 CXR reviewed, shows: IMPRESSION: No active disease. 10/08/18 15:35 UA negative. CXR negative. Orthostatics negative. I discussed the case with Dr. Benites GI physician who recently completed an EGD and Colonscopy. I reviewed the results. He states the patient also was having issues eating less. Patient and daughter state yes she doesn't eat as much as she should. After IVF today she felt 100% better. She got up by herself and walked to the bathroom and during this time she felt no lightheadedness or weakness. Contrary to tracker stated complaint she does not have back pain. She does have a chronic him pain from arthritis but she is not hear for that today. She was educated by me on good diet and advised to keep well hydrated. Her daughter and patient agree with plan to go home with follow up. She will make sure to see her PMD as soon as possible and are aware that they should return to the ED if symptoms worsen or any other Concern. - RAD Interpretation Radiology Orders: 10/08/18 12:25 CHEST PORTABLE [RAD] Stat - Medication Orders Current Medication Orders: Sodium Chloride (Sodium Chloride 0.9%) 500 mls @ 999 mls/hr IV .Q31M STA Stop: 10/08/18 12:57 - Scribe Statement The provider has reviewed the documentation as recorded by the Scribalicia Ramos All medical record entries made by the Sunibalicia were at my direction and personally dictated by me. I have reviewed the chart and agree that the record accurately reflects my personal performance of the history, physical exam, medical decision making, and the department course for this patient. I have also personally directed, reviewed, and agree with the discharge instructions and disposition. Disposition/Present on Arrival - Present on Arrival Any Indicators Present on Arrival: No History of DVT/PE: No History of Uncontrolled Diabetes: No Urinary Catheter: No History of Decub. Ulcer: No History Surgical Site Infection Following: None - Disposition Have Diagnosis and Disposition been Completed?: Yes Diagnosis: Lightheaded Disposition: HOME/ ROUTINE Disposition Time: 15:38 Patient Problems: Current Active Problems Problem Status Onset Lightheaded Acute Condition: IMPROVED Discharge Instructions (ExitCare): Near Fainting Additional Instructions: YAHAIRA MALDONADO, thank you for letting us take care of you today. Your provider was Harlan Paiz DO and you were treated for Near Syncope. The emergency medical care you received today was directed at your acute symptoms. If you were prescribed any medication, please fill it and take as directed. It may take several days for your symptoms to resolve. Return to the Emergency Department if your symptoms worsen, do not improve, or if you have any other problems. Please contact your doctor or call one of the physicians/clinics you have been referred to that are listed on the Patient Visit Information form that is included in your discharge packet. Bring any paperwork you were given at discharge with you along with any medications you are taking to your follow up visit. Our treatment cannot replace ongoing medical care by a primary care michael silvestre outside of the emergency department. Thank you for allowing the [employer] team to be part of your care today. If you had an X-Ray or CT scan: A Radiologist will review the ED reading if any change in treatment is needed we will contact you. If you had a blood, urine, or wound culture: It will take several days for the results, if any change in treatment is needed we will contact you. If you had an STI test: It will take 48 hours for the results. Please call after 1 week if you have not heard back. Referrals: Sandoval Villalobos MD [Primary Care Provider] - Follow up with primary Forms: [employer] (Lithuanian)
[2018-10-08 13:46] LABS: BASO # 0.02 K/mm3 (0.0-2.0); BASO % 0.4 % (0.0-3.0); EOS # 0.1 (0.0-0.7); EOS % 2.3 % (1.5-5.0); GRAN # 3.64 (1.4-6.5); GRAN % 65.6 % (50.0-68.0); HEMOGLOBIN 9.9 g/dL (12.0-16.0); LYMPH # 1.4 (1.2-3.4); LYMPH % 25.8 % (22.0-35.0); MEAN CELL VOLUME 83.4 fl (80.0-105.0); MEAN CORPUSCULAR HGB CONC 32.4 g/dl (31.0-37.0); MEAN PLATELET VOLUME 10.2 fl (7.0-11.0); MONO # 0.3 (0.1-0.6); MONO % 5.9 % (1.0-6.0); RBC 3.67 10^6/uL (3.5-6.1); RED CELL DISTRIBUTION WIDTH 15.2 % (11.5-14.5); WHITE BLOOD COUNT 5.6 10^3/uL (4.5-11.0)
[2018-10-08 13:50] LABS: INR 1.4; PROTHROMBIN TIME 16.2 SECONDS (9.4-12.5)
[2018-10-08 13:53] LABS: ALB/GLOB RATIO 1.3 (1.1-1.8); ALBUMIN 3.9 g/dL (3.0-4.8); ALT/SGPT 16 U/L (7-56); AST/SGOT 22 U/L (14-36); BLOOD UREA NITROGEN 16 mg/dL (7-21); CALCIUM 10.3 mg/dL (8.4-10.5); GFR NON-AFRICAN AMERICAN 60
[2018-10-08 14:05] LABS: TROPONIN I < 0.01 ng/mL
--- NOTE | 2018-10-08 14:06 | RAD ---
Date of service: 10/08/2018 HISTORY: near syncope COMPARISON: 07/26/2017 FINDINGS: LUNGS: No active pulmonary disease. PLEURA: No significant pleural effusion identified, no pneumothorax apparent. CARDIOVASCULAR: No aortic atherosclerotic calcification present. Normal cardiac size. No pulmonary vascular congestion. OSSEOUS STRUCTURES: No significant abnormalities. VISUALIZED UPPER ABDOMEN: Normal. OTHER FINDINGS: None. IMPRESSION: No active disease.
[2018-10-08 14:50] LABS: URINE BILIRUBIN NEGATIVE (NEGATIVE); URINE BLOOD NEGATIVE (NEGATIVE); URINE GLUCOSE (UA) NEGATIVE (NEGATIVE); URINE LEUKOCYTE ESTERASE TRACE Leu/uL (NEGATIVE); URINE PROTEIN NEGATIVE mg/dL (<30 mg/dL); URINE UROBILINOGEN 0.2 E.U./dL (<1 E.U./dL)
[2018-10-08 14:59] LABS: URINE APPEARANCE CLEAR (CLEAR); URINE COLOR LIGHT YELLOW (YELLOW)
[2018-10-08 15:19] LABS: URINE RBC NEGATIVE /hpf (0-2)
--- NOTE | 2018-10-08 15:30 | CARD ---
APPROVED REPORT Date of service: 10/08/2018 EKG Measurement Heart [id number] <Conclusion> Poor data quality, interpretation may be adversely affected Normal sinus rhythm Normal ECG
== END 2018-10-08 15:33 | disposition home or self-care (01) ==
LOC: ED 11:57
DX: R42 Dizziness and giddiness (principal); I10 Essential (primary) hypertension; E78.5 Hyperlipidemia, unspecified; Z86.711 Personal history of pulmonary embolism
CPT/HCPCS: 71045; 80053; 81001; 82550; 83615; 83735; 84484; 85025; 85610; 85730; 87086; 93005; 99285; J7040

== ENCOUNTER 2018-12-19 12:25 | Outpatient (CLI) | payer MEDICARE | END 2018-12-19 12:26 | disposition home or self-care (01) | LOC: RAD 12:25 ==

== ENCOUNTER 2019-02-13 12:54 | Emergency (ER) | payer MEDICARE ==
[2019-02-13 13:26] VITALS: BMI 19.1
[2019-02-13 13:32] VITALS: TEMP 97.8
[2019-02-13] MEDS ORDERED: oxyCODONE 5 mg Immediate Release Tab PO STA (13:39)
--- NOTE | 2019-02-13 14:05 | ED PDOC ---
Arrival/HPI - General Chief Complaint: Hip Pain Time Seen by Provider: 02/13/19 13:13 Historian: Patient - History of Present Illness Narrative History of Present Illness (Text): 02/13/19 14:05 83 year old female, with a past medical history of hyperlipidemia, PE, and arthritis, who presents to the emergency room complaining of a constant right hip pain that radiates down the right leg. Patient reports she had an X-ray taken here, which showed "bone on bone" in her hip. She reports she takes Tylenol for the pain, with minimal relief and states she is not able to ambulate. Patient also reports she saw an orthopedic in October for the right hip pain and was found to have arthritis-surgery was refused. Patient denies any fever, chills, nausea, vomiting, back pain, or any other complaints. PCP: Sandoval Villalobos M.D 02/13/19 16:16 Symptom Onset: Gradual Symptom Course: Unchanged Activities at Onset: Light Context: Home Past Medical History - Provider Review Nursing Documentation Reviewed: Yes - Infectious Disease Hx of Infectious Diseases: None - Tetanus Immunization Tetanus Immunization: Unknown - Past Medical History Past Medical History: No Previous - Cardiac Hx Hypertension: Yes - Pulmonary Hx Pulmonary Embolism: Yes - Neurological Hx Paralysis: No - HEENT Hx HEENT Disorder: No - Renal Hx Renal Disorder: No - Endocrine/Metabolic Hx Endocrine Disorders: No - Hematological/Oncological Hx Blood Transfusions: Yes Hx Blood Transfusion Reaction: No - Musculoskeletal/Rheumatological Hx Musculoskeletal Disorders: Yes Hx Arthritis: Yes - Gastrointestinal Hx Gastrointestinal Disorders: Yes (liver meningioma) - Genitourinary/Gynecological Other/Comment: mammography 05/02/12 - Psychiatric Hx Emotional Abuse: No Hx Physical Abuse: No Hx Substance Use: No - Past Surgical History Past Surgical History: No Previous - Anesthesia Hx Anesthesia Reactions: No Hx Malignant Hyperthermia: No - Suicidal Assessment Feels Threatened In Home Enviroment: No Family/Social History - Physician Review Nursing Documentation Reviewed: Yes Family/Social History: Unknown Family HX Smoking Status: Never Smoked Hx Alcohol Use: No Hx Substance Use: No Hx Substance Use Treatment: No Allergies/Home Meds Allergies/Adverse Reactions: Allergies No Known Allergies Allergy (Verified 02/13/19 13:26) Home Medications: Home Meds Medication Instructions Recorded Confirmed Atorvastatin [Lipitor] 10 mg PO DIN 09/30/14 10/02/18 Apixaban [Eliquis] 2.5 mg PO BID 07/24/15 10/02/18 Ranitidine HCl [Acid [place]] 150 mg PO BID 08/15/16 10/02/18 Donepezil HCl [Aricept] 5 mg PO DAILY 07/26/17 10/02/18 Cholecalciferol (Vitamin D3) 1,000 unit PO DAILY 08/09/17 10/02/18 [Vitamin D3] Losartan Potassium 50 mg PO DAILY 09/29/18 10/02/18 Pantoprazole Sodium [Protonix] 20 mg PO DAILY 10/02/18 10/02/18 Review of Systems - Physician Review All systems were reviewed & negative as marked: Yes - Review of Systems Constitutional: absent: Fevers Respiratory: absent: SOB, Cough Cardiovascular: absent: Chest Pain Gastrointestinal: absent: Abdominal Pain, Nausea, Vomiting Musculoskeletal: Other (right hip and leg pain). absent: Back Pain, Neck Pain Neurological: absent: Headache, Dizziness Physical Exam - Physical Exam Narrative Physical Exam (Text): 02/13/19 15:33 Gen: VS reviewed, alert, well developed, well nourished, nontoxic, mild distress Eye: EOMI, PERRL Neck: no JVD, supple, no adenopathy CV: regular rate, regular rhythm, no rubs,no murmur, S1, S2 Pulm: no distress, clear to auscultation, no wheeze, no rhonchi, breath sounds equal, no rales Abd: soft, nontender, no guarding, no rebound, no rigidity Ext: questionable edema in the right lower ext when compared to the contralateral side. there is significant limited flexion at the right hip second to pain. patient is unable to flex at the knee as she is splinting from the hip pain. there is good flexion of the right knee passively to about 90 degrees Skin: good color, no rash, no cyanosis Psych: responds appropriately to questions, normal affect Neuro: oriented x3, CN2-12 intact grossly, motor intact, sensation intact Vital Signs Reviewed: Yes Vital Signs Temp Pulse Resp BP Pulse Ox 02/13/19 13:31 97.8 F 86 18 119/67 96 Temperature: Afebrile Blood Pressure: Normal Pulse: Regular Respiratory Rate: Normal Mental Status: Positive for: Alert and Oriented X 3 Medical Decision Making ED Course and Treatment: 02/13/19 14:01 Impression: 83 year old female presents to the emergency room complaining of right hip pain that radiates down the right leg, there is no low back pain to suggest the pain is radicular as the patient clearly states the pain is stemming from the hip. Differential Diagnosis included but are not limited to: Plan: -- CT lower extremity -- Labs -- IV Fluids -- Tylenol -- Oxycodone -- IV Fluids -- US lower extremity -- Reassess and disposition Prior Visits: Notes and results from previous visits were reviewed. Patient was last seen in the emergency department on Progress Notes: 02/13/19 15:32 patient reports moderate improvement in the pain in the right hip. patient is now able to flex at the right hip with manual assistance. will continue to monitor pain level and eventually get ambulation trial pending negative CT for fracture. 02/13/19 16:17 02/13/19 17:39 patient states her pain has improved, she feel well and strong enough to ambulate with her walker. patient will follow up with her regular doctor this .will rx 5mg oxycoedone to take instead of tramadol. my concern with tramadol is the common potential side effect of dizziness and patient has clearly tolerated oxycodone in the ED. 02/13/19 17:42 - RAD Interpretation Narrative RAD Interpretations (Text): 02/13/19 15:49 preluminary US report: negative for lower ext DVT 02/13/19 16:11 CT lower extremity reviewed by radiologist, shows: There is no evidence of fracture Radiology Orders: 02/13/19 13:38 EXT LOWER W/O CONTRAST RIGHT [CT] Stat DUPLEX LOWER EXTRM VEIN RIGHT [US] Stat Industrial Laborer: Radiologist - Medication Orders Current Medication Orders: Discontinued Medications Acetaminophen (Tylenol 325mg Tab) 975 mg PO STAT STA Stop: 02/13/19 13:40 Oxycodone HCl (Oxycodone Immediate Release Tab) 2.5 mg PO STAT STA Stop: 02/13/19 13:40 - Scribe Statement The provider has reviewed the documentation as recorded by the Quirino Carrasco Provider Scribe Attestation: All medical record entries made by the Scribe were at my direction and personally dictated by me. I have reviewed the chart and agree that the record accurately reflects my personal performance of the history, physical exam, medical decision making, and the department course for this patient. I have also personally directed, reviewed, and agree with the discharge instructions and disposition. Disposition/Present on Arrival - Present on Arrival Any Indicators Present on Arrival: No History of DVT/PE: No History of Uncontrolled Diabetes: No Urinary Catheter: No History of Decub. Ulcer: No History Surgical Site Infection Following: None - Disposition Have Diagnosis and Disposition been Completed?: Yes Diagnosis: Arthritis of right hip Disposition: HOME/ ROUTINE Disposition Time: 17:40 Patient Plan: Discharge Patient Problems: Current Active Problems Problem Status Onset Deep vein thrombosis (DVT) Resolved Condition: STABLE Discharge Instructions (ExitCare): Osteoarthritis Prescriptions: oxyCODONE [oxyCODONE Immediate Release Tab] 5 mg PO Q6H #20 tab Sennosides/Docusate Sodium [Colace 2-in-1 Tablet] 2 each PO BID 7 Days #14 tablet Referrals: Sandoval Villalobos MD [Primary Care Provider] - Follow up with primary Forms: [employer] (Bhutanese)
[2019-02-13 14:48] LABS: BASO # 0.02 K/mm3 (0.0-2.0); BASO % 0.3 % (0.0-3.0); EOS # 0.1 (0.0-0.7); EOS % 1.1 % (1.5-5.0); HEMOGLOBIN 10.7 g/dL (12.0-16.0); LYMPH % 29.8 % (22.0-35.0); MEAN CELL VOLUME 84.3 fl (80.0-105.0); MEAN CORPUSCULAR HEMOGLOBIN 27.2 pg (25.0-35.0); MEAN CORPUSCULAR HGB CONC 32.2 g/dl (31.0-37.0); MEAN PLATELET VOLUME 9.7 fl (7.0-11.0); MONO # 0.5 (0.1-0.6); RBC 3.94 10^6/uL (3.5-6.1); WHITE BLOOD COUNT 6.6 10^3/uL (4.5-11.0)
[2019-02-13 14:59] LABS: BLOOD UREA NITROGEN 23 mg/dL (7-21); CALCIUM 10.6 mg/dL (8.4-10.5); GFR NON-AFRICAN AMERICAN 60
--- NOTE | 2019-02-13 15:05 | CT ---
Date of service: 02/13/2019 PROCEDURE: CT of the right hip HISTORY: right HIP, fracture? COMPARISON: TECHNIQUE: Radiation dose: Total exam DLP = 212 mGy-cm. This CT exam was performed using one or more of the following dose reduction techniques: Automated exposure control, adjustment of the mA and/or kV according to patient size, and/or use of iterative reconstruction technique. FINDINGS: Severe degenerative changes are seen in the right hip joint. There flattening of the femoral head and irregularity of the joint surface. Subchondral cysts are seen as well as osteophytes. There is no evidence of fracture IMPRESSION: No evidence of fracture
[2019-02-13 19:17] VITALS: BP 117/65; PULSE 85; RESP 19; O2SAT 100
--- NOTE | 2019-02-13 19:20 | US ---
PROCEDURE: Right lower extremity venous US HISTORY: Leg pain and swelling. Evaluate for DVT. PHYSICIAN(S): Kavon Card M.D. TECHNIQUE: Duplex sonography and color-flow Doppler with graded compression were used to evaluate the deep venous system of the right lower extremity. FINDINGS: The visualized deep venous system of the right lower extremity is sonographically normal and compressible. Normal waveforms and augmentation are seen. There is no sonographic evidence for deep venous thrombosis in the visualized segments of the right lower extremity. IMPRESSION: 1. No sonographic evidence for deep venous thrombosis in the visualized segments of the right lower extremity.
== END 2019-02-13 18:15 | disposition home or self-care (01) ==
LOC: ED 12:54
DX: M16.11 Unilateral primary osteoarthritis, right hip (principal); I10 Essential (primary) hypertension; Z86.711 Personal history of pulmonary embolism